=== PATIENT | female | born 1970 | race Caucasian/White ===

== ENCOUNTER → 2016-12-03 | Outpatient (CLI) | payer OTHER ==
[~2016-12-03] MED LIST: ALLEGRA ALLERG180 MG; ESKALITH C450 MG/TAB; IRON; LAMICTAL 100MG100 MG PO; MOTRIN 800800 MG/TAB PO; PAMELOR 25MG25 MG; PRINIVIL5 MG PO; PROZAC 20MG20 MG PO; ULTRAM 50MG TAB50 MG PO
== END ==
LOC: BHSO 09:00
DX: F31.81 Bipolar II disorder (principal)

== ENCOUNTER → 2017-02-04 | Outpatient (CLI) | payer OTHER | LOC: BHSO 09:28 | DX: F31.74 Bipolar disorder, in full remission, most recent episode manic (principal) ==

== ENCOUNTER → 2017-03-11 | Outpatient (CLI) | payer OTHER | LOC: MC.RAD 13:16 | DX: Z12.31 Encounter for screening mammogram for malignant neoplasm of breast (principal) ==

== ENCOUNTER → 2017-04-03 | Outpatient (CLI) | payer OTHER | LOC: BHSO 10:17 | DX: F31.73 Bipolar disorder, in partial remission, most recent episode manic (principal) ==

== ENCOUNTER → 2017-05-13 | Outpatient (CLI) | payer OTHER | LOC: BHSO 09:18 | DX: F31.73 Bipolar disorder, in partial remission, most recent episode manic (principal) ==

== ENCOUNTER → 2017-08-04 | Outpatient (CLI) | payer OTHER | LOC: BHSO 09:03 | DX: F31.73 Bipolar disorder, in partial remission, most recent episode manic (principal) ==

== ENCOUNTER → 2017-12-02 | Outpatient (CLI) | payer OTHER | LOC: BHSO 09:36 | DX: F41.1 Generalized anxiety disorder (principal) | CPT/HCPCS: G0463 ==

== ENCOUNTER → 2018-02-18 | Outpatient (CLI) | payer OTHER | LOC: BHSO 09:36 | DX: F31.31 Bipolar disorder, current episode depressed, mild (principal) | CPT/HCPCS: G0463 ==

== ENCOUNTER → 2018-05-18 | Outpatient (CLI) | payer OTHER | LOC: BHSO 09:34 | DX: F31.31 Bipolar disorder, current episode depressed, mild (principal) ==

== ENCOUNTER → 2018-07-13 | Outpatient (CLI) | payer OTHER | LOC: BHSO 09:26 | DX: F31.76 Bipolar disorder, in full remission, most recent episode depressed (principal) | CPT/HCPCS: G0463 ==

== ENCOUNTER → 2018-09-22 | Outpatient (CLI) | payer OTHER | LOC: BHSO 13:26 | DX: F31.76 Bipolar disorder, in full remission, most recent episode depressed (principal) | CPT/HCPCS: G0463 ==

== ENCOUNTER → 2018-11-09 | Outpatient (CLI) | payer OTHER | LOC: BHSO 09:31 | DX: F31.75 Bipolar disorder, in partial remission, most recent episode depressed (principal) | CPT/HCPCS: G0463 ==

== ENCOUNTER → 2019-02-15 | Outpatient (CLI) | payer OTHER | LOC: BHSO 09:39 | DX: F31.76 Bipolar disorder, in full remission, most recent episode depressed (principal) | CPT/HCPCS: G0463 ==

== ENCOUNTER → 2019-08-03 | Outpatient (CLI) | payer OTHER | LOC: MC.RAD 06-30 11:30 | DX: Z12.31 Encounter for screening mammogram for malignant neoplasm of breast (principal) ==

== ENCOUNTER → 2019-08-23 | Outpatient (CLI) | payer OTHER | LOC: BHSO 09:32 | DX: F41.1 Generalized anxiety disorder (principal) | CPT/HCPCS: G0463 ==

== ENCOUNTER → 2019-10-25 | Outpatient (CLI) | payer OTHER | LOC: BHSO 09:24 | DX: F31.77 Bipolar disorder, in partial remission, most recent episode mixed (principal) | CPT/HCPCS: G0463 ==

== ENCOUNTER → 2019-12-27 | Outpatient (CLI) | payer OTHER | LOC: BHSO 09:35 | DX: F31.78 Bipolar disorder, in full remission, most recent episode mixed (principal) | CPT/HCPCS: G0463 ==

== ENCOUNTER → 2020-03-27 | Outpatient (CLI) | payer OTHER | LOC: BHSO 08:50 | DX: F31.76 Bipolar disorder, in full remission, most recent episode depressed (principal) | CPT/HCPCS: G0463 ==

== ENCOUNTER → 2020-05-29 | Outpatient (CLI) | payer OTHER | LOC: BHSO 09:54 | DX: F31.75 Bipolar disorder, in partial remission, most recent episode depressed (principal) | CPT/HCPCS: G0463 ==

== ENCOUNTER → 2020-08-07 | Outpatient (CLI) | payer OTHER | LOC: BHSO 08:35 | DX: F31.75 Bipolar disorder, in partial remission, most recent episode depressed (principal) | CPT/HCPCS: G0463 ==

== ENCOUNTER → 2020-09-05 | Outpatient (CLI) | payer OTHER | LOC: BHSO 09:31 | DX: F31.75 Bipolar disorder, in partial remission, most recent episode depressed (principal) | CPT/HCPCS: G0463 ==

== ENCOUNTER → 2021-04-24 | Outpatient (CLI) | payer OTHER | LOC: COL.RAD 12:36 | DX: K76.0 Fatty (change of) liver, not elsewhere classified (principal); N18.30 Chronic kidney disease, stage 3 unspecified ==

== ENCOUNTER 2021-12-11 06:55 | Day surgery (SDC) | payer OTHER ==
[~2021-12-11] VITALS: Ht 165.1 cm; Wt 124.6 kg
--- NOTE | 2021-12-11 07:05 | NUR ---
51 Year old female admitted to [facility] #1. Height and weight obatined. Medications and HX reveiwed. Physical assessment completed. Procedure verified and consent signed. First and last name + verified with the patient. Vitals obtained. IV started in R hand on first attempt with 20G. IVF scanned and set to drip. Patient changed witout difficulty. Warm blanket provided. Non-slip socks are on. Call slater is within reach and the patients is present.
[2021-12-11] MEDS ORDERED: MYRBETR50MG PO (07:20)
[2021-12-11] MEDS ORDERED: WOMEN'S DAILY1 TAB PO (07:20)
[2021-12-11] MEDS ORDERED: WELLBUTRIN SR150 M1 PO (07:21)
[2021-12-11] MEDS ORDERED: NUEDEXTA 20 MG-1 CAP PO (07:21)
[2021-12-11] MEDS ORDERED: PRINIVIL5 MG PO (07:22)
[2021-12-11] MEDS ORDERED: PAMELOR75 MG PO (07:22)
[2021-12-11] MEDS ORDERED: LATUDA60 MG PO (07:23)
[2021-12-11] MEDS ORDERED: ESKALITH C450 MG/TAB PO (07:23)
[2021-12-11] MEDS ORDERED: PRILOSEC 20MG20 MG PO (07:24)
[2021-12-11 07:46] VITALS: BP 142/82; PULSE 93; TEMP 98
[2021-12-11 08:30] VITALS: BP 119/69; PULSE 85
--- NOTE | 2021-12-11 08:30 | NUR ---
Patient returns to bay 1 per cart after having EGD. Transfers from cart to recliner with one person assist. IV fluids infusing. Temp 98.1. Denies difficulty swallowing and any nausea or abdominal pain. Given water and toast for snack. Spouse in room and call light in reach.
[2021-12-11 08:45] VITALS: BP 120/75; PULSE 84
--- NOTE | 2021-12-11 08:45 | NUR ---
Room air sats 94%. Resting and sipping on water and eating toast.
--- NOTE | 2021-12-11 08:55 | NUR ---
IV discontinued and dresses self. Given dismissal instructions and voices understanding of these.
--- NOTE | 2021-12-11 09:03 | NUR ---
Patient dismissed to home and taken to the front door per wheelchair and assisted into private vehicle with instructions in hand.
== END 2021-12-11 09:03 | disposition home or self-care (01) ==
LOC: SDCO 06:55
DX: K21.9 Gastro-esophageal reflux disease without esophagitis (principal); K29.30 Chronic superficial gastritis without bleeding; G47.33 Obstructive sleep apnea (adult) (pediatric); E88.81 Metabolic syndrome and other insulin resistance; I12.9 Hypertensive chronic kidney disease with stage 1 through stage 4 chronic kidney disease, or unspecified chronic kidney disease; N18.30 Chronic kidney disease, stage 3 unspecified; E78.5 Hyperlipidemia, unspecified; E66.01 Morbid (severe) obesity due to excess calories; F41.9 Anxiety disorder, unspecified; F31.9 Bipolar disorder, unspecified; F50.81 Binge eating disorder; Z99.89 Dependence on other enabling machines and devices; Z79.899 Other long term (current) drug therapy; Z90.710 Acquired absence of both cervix and uterus; Z68.41 Body mass index [BMI] 40.0-44.9, adult
CPT/HCPCS: J2704; J7030

== ENCOUNTER 2021-12-25 09:30 | Inpatient (IN) | payer OTHER ==
[~2021-12-25] VITALS: Ht 165.1 cm; Wt 120.0 kg
[~2021-12-25 09:30] MED LIST changes: +ESKALITH C450 MG/TAB PO; +LATUDA60 MG PO; +MYRBETR50MG PO; +NUEDEXTA 20 MG-1 CAP PO; +PAMELOR75 MG PO; +PRILOSEC 20MG20 MG PO; +WELLBUTRIN SR150 M1 PO; +WOMEN'S DAILY1 TAB PO
[2022-01-09] VITALS (11 sets, daily range): BP systolic 104–141; BP diastolic 66–83; PULSE 90–105; TEMP 98–98.7
[2022-01-09] MEDS ORDERED: MULTIVITAMIN FO1 CAP PO (08:08)
[2022-01-09] MEDS ORDERED: MYRBETR50MG PO (08:08)
[2022-01-09] MEDS ORDERED: WELLBUTRIN 75MG75 MG PO (08:09)
[2022-01-09] MEDS ORDERED: NUEDEXTA 20 MG-1 CAP PO (08:09)
[2022-01-09] MEDS ORDERED: CALCIUM 600600 MG PO (08:10)
[2022-01-09] MEDS ORDERED: MASON NATURAL2000 IU PO (08:11)
[2022-01-09] MEDS ORDERED: B-121000 MCG PO (08:12)
[2022-01-09] MEDS ORDERED: PAMELOR75 MG PO (08:12)
[2022-01-09] MEDS ORDERED: ALLEGRA 180MG180 MG PO (08:14)
[2022-01-09] MEDS ORDERED: PRINIVIL5 MG PO (08:14)
[2022-01-09] MEDS ORDERED: LITHIUM 30300 MG/CAP PO (08:15)
[2022-01-09] MEDS ORDERED: PROBIOTIC BLEN1 EACH PO (08:15)
[2022-01-09] MEDS ORDERED: FLONASEALLERGY NS (08:16)
[2022-01-09] MEDS ORDERED: LATUDA60 MG PO ×2 (08:16→14:55)
[2022-01-09] MEDS ORDERED: ATIVAN 1MG T1 MG/TAB PO (08:17)
[2022-01-09] MEDS ORDERED: MELATONIN5 M1 PO (08:17)
[2022-01-09] MEDS ORDERED: WELLBUTRIN XL150 MG PO (14:54)
--- NOTE | 2022-01-09 15:30 | NUR ---
Pt arrived to the floor from [facility] around 1400. Pt is alert and oriented with minimal to no pain complaints. Spouse is not in the hospital at this time, pt aware. Pt rating her pain 1-2/10. Oriented pt to her room and educated on plan of care when she arrived to the floor. She currently has the ARCHITECTURE CONSULTANT for pain management. Pt educated on its use. SCDs on bilaterally. Fluids infusing to her right hand IV. Santos catheter to dependent drainage with clear yellow output. Lap sites are CDI with bandaids and MARCUS drain site with dressing that is CDI. Absent bowel sounds, lung sound clear and heart rate regular. Pt aware that she is to not have anything to eat or drink at this time. Call light within reach, will continue to monitor
--- NOTE | 2022-01-09 15:47 | NUR ---
Pt having complaints of a few of her fingers tingling. She did have them rested on her abd. Asked her to put them at her side for increased blood flow. No new medications have been given recently. Dr Taylor was on the floor, notified him of this, new orders received.
[2022-01-09 16:26] LABS: CALCIUM 9.6 mg/dL (8.4-10.2); CREATININE, serum 1.7 mg/dL (0.57-1.11); POTASSIUM 4.4 mmol/L (3.5-4.5)
--- NOTE | 2022-01-09 18:12 | NUR ---
Pt recently assisted to the chair. Her dressing for the MARCUS drain was bloody, changed prior to the chair. Pt stated that her pain has been a zero, but pt has been using the HOTEL FRONT OFFICE MANAGER. Assessed pt tolerable pain level and she stated 5/10. Informed her to maybe wait until at least 3-4 before using the HOTEL FRONT OFFICE MANAGER. Pt did well getting up to the chair, it was slow, but managable. Pt did have an increase in pain, but once in chair used the HOTEL FRONT OFFICE MANAGER. Call light within reach, will continue to monitor
[2022-01-10] VITALS (9 sets, daily range): BP systolic 125–149; BP diastolic 56–86; PULSE 91–110; TEMP 98.3–99.5
--- NOTE | 2022-01-10 01:57 | NUR ---
Report received from MARTHA Vogt. Patient up in her chair watching television. Assessment completed and vital signs WNL. Medication administration completed without difficulty. Patient is A&Ox3 and tolerating pain well, rates her pain a 2/10. MARCUS drain in place, 75 ml of sanguineos removed. Patient has no complaints at this time. Call light within reach.
[2022-01-10 06:25] LABS: BASO % 0.1 % (0.0-2.0); EOS % 0.1 % (0.0-4.0); GRAN # 12.3 K/mm3 (1.4-6.5); HEMATOCRIT 37.2 % (37.0-47.0); HEMOGLOBIN 12.4 g/dl (12.5-16.0); LYMPH # 1.1 K/mm3 (1.2-3.4); LYMPH % 7.4 % (20.0-51.0); MEAN CELL VOLUME 86 fl (80.0-100.0); MEAN CORPUSCULAR HEMOGLOBIN 29 pg (27-31); MEAN CORPUSCULAR HGB CONC 33 g/dl (33.0-37.0); MEAN PLATELET VOLUME 12.6 fl (7.4-10.4); MONO # 0.9 K/mm3 (0.1-0.6); MONO % 6.1 % (1.7-9.3); PLATELET COUNT 150 K/mm3 (130-400); RED BLOOD COUNT 4.35 M/mm3 (4.10-5.30); REDCELL DISTRIBUTION WIDTH-CV 14.9 % (11.5-14.5)
[2022-01-10 06:47] LABS: ALANINE AMINOTRANSFERASE 209 U/L (0-55); ALBUMIN 3.7 gm/dL (3.5-5.0); ALKALINE PHOSPHATASE 77 U/L (40-150); ANION GAP 10 mmol/L (7-16); AST,SGOT 194 U/L (5-34); BLOOD UREA NITROGEN 16 mg/dL (10-20); CALCIUM 9.4 mg/dL (8.4-10.2); CARBON DIOXIDE 22 mmol/L (22-29); CHLORIDE 109 mmol/L (98-107); CREATININE, serum 1.32 mg/dL (0.57-1.11); GLUCOSE 131 mg/dL (70-99); POTASSIUM 4.2 mmol/L (3.5-4.5); SODIUM 141 mmol/L (136-145); TOTAL PROTEIN 6.8 gm/dL (6.2-8.1)
[2022-01-10 06:57] LABS: BILIRUBIN,TOTAL < 0.5 mg/dL (0.2-1.2)
--- NOTE | 2022-01-10 08:58 | NUR ---
Pt currently sitting up in the chair. She states that her pain was tolerable through the night, increased with movement. Appears that her tang catheter was leaking as her bed was wet. There is urine output in the tang catheter as well. MARCUS drain emptied and put to bulb suction. Pt educated on plan for the day. She is aware that she is to not have anything to eat or drink at this time and will be going to radiology for swallow. Call light within reach
--- NOTE | 2022-01-10 09:14 | NUR ---
pt off the floor for barrium swallow
--- NOTE | 2022-01-10 10:29 | NUR ---
weld lay out worker met with patient to discuss discharge plan. Patient report that she lives at home in [place] with her Giovanni ([phone]). Patient reports that she is independent with her ADL's and does not utilize any DME at home to assist with mobility. She has no oxygen needs however does utilize a CPAP machine a night that is managed through . PCP is Dr. Larose and she utilizes [facility] for medications with no cost difficulty. Patient does have a DPOA-HC established and has the original with her. Copy made and placed in chart. DPOA-HC listing her Giovanni as her primary agent and her daughter Ermelinda as an alternate agent. Patient is planning on returning home with no concerns. Discharge plan: Home
--- NOTE | 2022-01-10 10:40 | NUR ---
Pt back from barium swallow. Discussed with Dr Taylor who ok'd her to have the 30cc of clear liquid every hour. Educated pt on this. Gave her a 30cc medicine cup for her to measure her intake. Pt reports that her pain continues to be tolerable, not needing to use the PENOLOGY PROFESSOR very often. Pt continues to sit up in the chair. Oil Field Rig Builder has come by to see patient, diet handouts given to her. Call light within reach
--- NOTE | 2022-01-10 12:57 | NUR ---
Pt tolerating the clear liquids. Pt consistently asks when she will get real food. Informed her that she will be clear liquids today and that she needs to continue to follow the diet she was educated on strictly. pt only nods in agreement. Fluids decreased to 75 per order
--- NOTE | 2022-01-10 14:40 | NUR ---
Pt up ambulating in the halls. She did well, mild pain increase, CARAMEL COLORING OPERATOR used. Encouraged pt to get up every couple of hours. Pt continues to tolerate the clear liquids
--- NOTE | 2022-01-10 15:30 | NUR ---
Report received from MARTHA Vogt. Assuming care for rest of shift.
--- NOTE | 2022-01-10 17:56 | NUR ---
PT ALERT AND ORIENTED. PT AT BEDSIDE. PT REPORTING PAIN IN LEFT UPPER QUADRANT. FOCUSED ASSESSMENT COMPLETED AND DOCUMENTED. PT INCISIONS COVERED WITH BANDAIDS, CLEAN, DRY, INTACT. PT HAS MARCUS DRAIN TO BULB SUCTION, DRAINAGE IS RED, BLOODY. PT CALL LIGHT WITHIN REACH.
--- NOTE | 2022-01-10 21:27 | NUR ---
Report received from day shift nurse. Patient is laying in bed quietly during report. Reports that her pain is 2/10 and is manageable. Santos catheter and WIRELESS STORE MANAGER were discontinued during dayshift 01/10/22. Patient is voiding. MACRUS drain still in place in lower left quadrant and contains scant amount of sanguineous drainage. Full body assessment completed, vital signs are WNL. Incision sites are CD&I. Patient tolerating oral fluids. No other complaints at this time. Call light within reach.
--- NOTE | 2022-01-11 03:00 | NUR ---
Patient complaining of abdominal pain while laying in bed , rates her pain a 5/10. PRN tramadol was given. No other complaints at this time. Call light within reach
[2022-01-11 03:29] VITALS: BP 128/73; PULSE 101; TEMP 99.3
[2022-01-11 06:32] LABS: BASO % 0.3 % (0.0-2.0); EOS # 0.1 K/mm3 (0.0-0.7); EOS % 0.5 % (0.0-4.0); GRAN # 9.8 K/mm3 (1.4-6.5); GRAN % 82.7 % (42.2-75.2); HEMOGLOBIN 11.8 g/dl (12.5-16.0); LYMPH # 1.1 K/mm3 (1.2-3.4); LYMPH % 8.9 % (20.0-51.0); MEAN CELL VOLUME 88 fl (80.0-100.0); MEAN CORPUSCULAR HEMOGLOBIN 28 pg (27-31); MEAN CORPUSCULAR HGB CONC 32 g/dl (33.0-37.0); MEAN PLATELET VOLUME 12.6 fl (7.4-10.4); MONO # 0.8 K/mm3 (0.1-0.6); MONO % 7.1 % (1.7-9.3); PLATELET COUNT 94 K/mm3 (130-400); RED BLOOD COUNT 4.19 M/mm3 (4.10-5.30); REDCELL DISTRIBUTION WIDTH-CV 15.2 % (11.5-14.5)
[2022-01-11 06:50] LABS: CALCIUM 9.5 mg/dL (8.4-10.2); CREATININE, serum 1.2 mg/dL (0.57-1.11); POTASSIUM 4.3 mmol/L (3.5-4.5)
--- NOTE | 2022-01-11 07:00 | NUR ---
Report received from MARTHA Moore. Pt in bed resting with CPAP in place. PRN pain meds will be given, will continue to monitor.
[2022-01-11 07:29] VITALS: BP 128/83; PULSE 98; TEMP 99.2
[2022-01-11 07:40] LABS: HEMATOCRIT 36.7 % (37.0-47.0)
--- NOTE | 2022-01-11 08:35 | NUR ---
Assessment charted. Pt c/o pain at 5/10 to ABD, increases with movement. Discussed fluid restriction PO at 30mls q 15 mins, pt agreeable to this plan, ice water provided. Discussed full liquid diet. PRN pain meds given per reqeust. Pt has 4 lap sites CDI and 1 MARCUS site with bloody drainage that is CDI on the dressing. Bowel sounds are hypoactive and appears distended. IVF to RH. Will continue to monitor.
[2022-01-11] MEDS ORDERED: ULTRAM 50MG TAB50 MG PO (08:45)
[2022-01-11] MEDS ORDERED: PRILOTC PO (08:45)
[2022-01-11] MEDS ORDERED: ZOFRAN 4MG T4 MG/TAB PO (08:45)
--- NOTE | 2022-01-11 09:23 | NUR ---
Initial visit; Patient thanked It Operations Analyst for looking in on her. Callie is experiencing pain and says she will keep nurses posted on how she feels. It Operations Analyst wished her well and offered God's blessings.
[2022-01-11 11:15] VITALS: BP 132/70; PULSE 104; TEMP 99.3
[2022-01-11 15:46] VITALS: BP 117/71; PULSE 105; TEMP 97.5
--- NOTE | 2022-01-11 18:23 | NUR ---
Pt has done well over shift, up walking every few hours, PRN ultram given per request throughout shift, denies needs, taking PO slowly and taking breaks in between. Will give report to nightshift nurse who will resume care.
[2022-01-11 20:38] VITALS: BP 131/74; PULSE 102; TEMP 98.1
[2022-01-12 00:34] VITALS: BP 124/73; PULSE 101; TEMP 99.1
[2022-01-12 04:30] VITALS: BP 122/79; PULSE 78; TEMP 97.8
--- NOTE | 2022-01-12 05:44 | NUR ---
pt requesting tramadol q4 hrs for pain, up to restroom to void with SBA, IVF infusing @75cc/hr, nausea reported x1, zofran given and resolved. taking sips of H2O with meds. 160cc bloody drainage from MARCUS drain, specimen sent to lab this am for amalase check. drsgs to armando CDI.
[2022-01-12 07:16] VITALS: BP 118/75; PULSE 96; TEMP 98
--- NOTE | 2022-01-12 11:30 | NUR ---
PT DEPARTED SURGICAL FLOOR @ 1115 VIA WC, ACCOMPANIED BY PCT MYRON. PT'S SPOUSE PICKED HER UP TO GO HOME. PT WAS PLEASANT, VOCALIZED UNDERSTANDING OF DISCHARGE INSTRUCTIONS. PT DENIES NAUSEA OR PAIN. PERIPHERAL IV IS DCED. PT'S MARCUS DRAIN WAS DCED BY DR. KENT EARLIER IN THE MORNING. DRESSINGS CDI TO LAP SITES ET DRAIN INCISION. PT TAKES PERSONAL BELONGINGS WITH HER, HAS GLASSES ON.
== END 2022-01-12 11:15 | disposition home or self-care (01) | DRG 621 ==
LOC: INPTSU 01-09 07:30 → SURG 01-09 10:00
PROVIDERS: ADMIT Surgery
PROC: 8E0W4CZ Robotic Assisted Procedure of Trunk Region, Percutaneous Endoscopic Approach (ICD-10-PCS; 2022-01-09)
PROC: 0D164ZA Bypass Stomach to Jejunum, Percutaneous Endoscopic Approach (ICD-10-PCS; principal; 2022-01-09 10:00)
DX: E66.01 Morbid (severe) obesity due to excess calories (principal); Z68.41 Body mass index [BMI] 40.0-44.9, adult; K21.9 Gastro-esophageal reflux disease without esophagitis; F31.9 Bipolar disorder, unspecified; I12.9 Hypertensive chronic kidney disease with stage 1 through stage 4 chronic kidney disease, or unspecified chronic kidney disease; N18.9 Chronic kidney disease, unspecified; G47.33 Obstructive sleep apnea (adult) (pediatric); E88.81 Metabolic syndrome and other insulin resistance; Z23 Encounter for immunization
CPT/HCPCS: A4314; C9113; J0690; J1100; J1170; J1650; J1956; J2405; J2550; J2704; J3010; J3480; J7120

== ENCOUNTER → 2022-09-30 | Outpatient (CLI) | payer OTHER ==
[~2022-09-30] MED LIST changes: +ALLEGRA 180MG180 MG PO; +ATIVAN 1MG T1 MG/TAB PO; +B-121000 MCG PO; +CALCIUM 600600 MG PO; +FLONASEALLERGY NS; +LITHIUM 30300 MG/CAP PO; +MASON NATURAL2000 IU PO; +MELATONIN5 M1 PO; +MULTIVITAMIN FO1 CAP PO; +PRILOTC PO; +PROBIOTIC BLEN1 EACH PO; +WELLBUTRIN 75MG75 MG PO; +WELLBUTRIN XL150 MG PO; +ZOFRAN 4MG T4 MG/TAB PO
== END ==
LOC: COL.RAD 09-26 06:30
DX: E05.90 Thyrotoxicosis, unspecified without thyrotoxic crisis or storm (principal)
CPT/HCPCS: A9516

== ENCOUNTER 2024-03-17 08:02 | Inpatient (IN) | payer OTHER ==
[~2024-03-17] VITALS: Ht 165.1 cm; Wt 89.7 kg
[~2024-03-17 08:02] MED LIST changes: +ASPIRIN E.C. 8181 MG PO; +BACTRIM DS 8001 TAB PO; +BRILINTA90 MG PO; +CAPLYTA42 MG PO; +HAIRSKINNAILS PO; +IMODIUM 2MG CAPS2 MG PO; +K-DUR20 MEQ PO; +LIPITOR 80MG80 MG PO; -LITHIUM 30300 MG/CAP PO; +LITHIUM CA150 MG/CAP PO; +METAMUCIL0.52 G1 PO; +NITROSTAT0.4 MG/TAB SL; +PAMELOR 25MG25 MG PO; +PROAIR HFA0.09 MG/AC IH; +ZEBETA 5MG5 MG PO
[2024-03-17] MEDS ORDERED: Ondansetron 4 MG/2 ML VIAL IV PRN ×3 (08:45→14:45)
[2024-03-17] MEDS ORDERED: NS 1,000 ML IV ONE (08:45)
[2024-03-17] MEDS ORDERED: Morphine 4 MG/ML VIAL IV PRN (08:45)
[2024-03-17 09:08] LABS: BASO % 0.5 % (0.0-2.0); EOS # 0.1 K/mm3 (0.0-0.7); GRAN # 4.9 K/mm3 (1.4-6.5); LYMPH # 1.1 K/mm3 (1.2-3.4); MEAN CELL VOLUME 94 fl (80.0-100.0); MEAN CORPUSCULAR HGB CONC 33 g/dl (33.0-37.0); MONO # 0.5 K/mm3 (0.1-0.6); PLATELET COUNT 141 K/mm3 (130-400); RED BLOOD COUNT 2.95 M/mm3 (4.10-5.30); REDCELL DISTRIBUTION WIDTH-CV 13.5 % (11.5-14.5)
[2024-03-17 09:09] LABS: HEMATOCRIT 27.7 % (37.0-47.0); HEMOGLOBIN 9.1 g/dl (12.5-16.0); MEAN CORPUSCULAR HEMOGLOBIN 31 pg (27-31)
[2024-03-17 09:40] LABS: ALBUMIN 3.6 g/dL (3.5-5.0); BILIRUBIN,TOTAL 0.3 mg/dL (0.2-1.2); CALCIUM 9.3 mg/dL (8.4-10.2); CREATININE, serum 1.22 mg/dL (0.57-1.11); POTASSIUM 3.9 mEq/L (3.5-4.5); TOTAL PROTEIN 6.4 g/dl (6.2-8.1)
[2024-03-17] MEDS ORDERED: Iohexol 300 - 100 ML VIAL IV ONE (10:26)
[2024-03-17] MEDS ORDERED: NS 100 ML IV SCH (10:27)
[2024-03-17] MEDS ORDERED: CONTRAVE1 TER PO (12:33)
[2024-03-17] MEDS ORDERED: CRANBERRY250 MG PO (12:34)
[2024-03-17] MEDS ORDERED: VITAMINC1000TA PO (12:34)
[2024-03-17] MEDS ORDERED: DEPAKENE250 MG PO ×2 (12:35)
[2024-03-17] MEDS ORDERED: CITRACAL + D CA1 TAB PO (12:36)
[2024-03-17] MEDS ORDERED: Morphine 4 MG/ML VIAL IV ONE (13:15)
[2024-03-17] MEDS ORDERED: Pantoprazole 40 MG in NS 10 ML IV ONE (13:45)
[2024-03-17] MEDS ORDERED: LR 1,000 ML IV SCH (14:30)
[2024-03-17 16:12] VITALS: BP 97/61; PULSE 67; TEMP 98
[2024-03-17] MEDS ORDERED: *Potassium Replacement Protocol MC SCH (16:15)
--- NOTE | 2024-03-17 16:32 | NUR ---
Patient to room 358 from the ED. A&Ox4. VSS. IV CDI, fluids infusing. Denies pain and discomfort. Call light within reach. Nurse oriented the patient to location, call light and room. No further needs expressed
--- NOTE | 2024-03-17 18:50 | NUR ---
PATIENT SITTING UP IN BED WATCHIN SHOW ON PERSONAL IPAD WITH NO FAMILY PRESENT WITH NO ACUTE DISTRESS NOTED. PATIENT ON ROOM AIR. TELEMETRY INTACT. LR INUFSING INTO LEFT AC WITH NO COMPLICATIONS NOTED. PATIENT DENIES ANY NEEDS AT THIS TIME. PATIENT CARE ASSSUMED FROM KENTRELL. BED IN LOW POSITION WITH WHEELS LOCKED WITH RAILS UP X2 AND CALL LIGHT WITHIN REACH.
[2024-03-17 19:30] LABS: HEMATOCRIT 24.1 % (37.0-47.0); HEMOGLOBIN 7.9 g/dl (12.5-16.0)
[2024-03-17 19:32] LABS: INR 1.1 (0.8-3.0); PROTHROMBIN TIME 11.9 SECONDS (9.7-12.8)
[2024-03-17 19:56] VITALS: BP 109/72; PULSE 77; TEMP 98.5
--- NOTE | 2024-03-17 19:59 | NUR ---
HOSPITALIST MIRIAM LACKEY APRN CALLED FOR PATIENT C/O HEADACHE. ORDER RECIEVED FOR TYLENOL 650 MG PO EVERY 4 HOURS PRN FOR PAIN.
[2024-03-17 20:13] VITALS: BP_SYST 109
--- NOTE | 2024-03-17 20:13 | NUR ---
PATIENT RESTING IN BED WITH PERSONAL IPAD ON BEDSIDE TABLE WITH NO FAMILY PRESENT WITH NO ACUTE DISTRESS NOTED. PATIENT ON ROOM AIR. LR INFUSING INTO LEFT AC WITH NO COMPLICATIONS NOTED. TELEMETRY INTACT. ASSESSMENT AND MEDICATION ADMINISTRATION COMPLETED AT THIS TIME. PATIENT TOLERATED WELL. PATIENT C/O HEADACHE AND STATES THAT HER PAIN LEVEL WAS A 7 ON SCALE OF 0 TO 10. PATIENT VERBALIZED UNDERSTANDING THAT HOSPITALIST WOULD BE CALLED FOR PAIN MEDICATION. PATIENT REQUESTED WATER AND WAS GIVEN. PATIENT DENIES ANY OTHER NEEDS. BED IN LOW POSITION WITH WHEELS LOCKED WITH RAILS UP X2 AND CALL LIGHT WITHIN REACH.
[2024-03-17] MEDS ORDERED: Acetaminophen 325 MG TAB PO PRN (20:15)
[2024-03-17] MEDS ORDERED: VALPROIC ACID 250 MG PO SCH (21:00)
[2024-03-17] MEDS ORDERED: NUEDEXTA PO SCH (21:00)
[2024-03-17] MEDS ORDERED: Divalproex 250 MG Delayed Release TAB PO SCH (21:00)
[2024-03-17] MEDS ORDERED: Pantoprazole 40 MG in NS 10 ML IV SCH (21:00)
[2024-03-17] MEDS ORDERED: DIVALPROEX 250 MG PO SCH (21:00)
[2024-03-18] VITALS (16 sets, daily range): BP systolic 91–116; BP diastolic 53–79; PULSE 68–79; TEMP 97.6–98.5
--- NOTE | 2024-03-18 00:15 | NUR ---
HOSPITALIST MIRIAM LACKEY APRN CALLED FOR NOLAN REQUESTED FOR SOMETHING FOR SLEEP. TELEPHONE ORDER RECIEVED FOR MELATONIN 6 MG PO EVERY EVENING PRN FOR INSOMNIA.
[2024-03-18] MEDS ORDERED: Melatonin 3 MG TAB PO PRN (00:30)
--- NOTE | 2024-03-18 00:51 | NUR ---
PATIENT GIVEN MELATONIN PER MD ORDER WITH SIP OF WATER FOR INSOMNIA. PATIENT TOLERATED WELL. PATIENT DENIES ANY OTHER NEEDS AT THIS TIME. BED IN LOW POSITION WITH WHEELS LOCKED WITH RAILS UP X2 AND CALL LIGHT WITHIN REACH.
[2024-03-18] MEDS ORDERED: LR 1,000 ML IV SCH (06:00)
[2024-03-18 07:09] LABS: BASO % 0.5 % (0.0-2.0); EOS # 0.1 K/mm3 (0.0-0.7); EOS % 2.7 % (0.0-4.0); GRAN # 2.5 K/mm3 (1.4-6.5); GRAN % 61.9 % (42.2-75.2); LYMPH # 1.1 K/mm3 (1.2-3.4); MEAN CELL VOLUME 96 fl (80.0-100.0); MEAN CORPUSCULAR HGB CONC 32 g/dl (33.0-37.0); MEAN PLATELET VOLUME 12.7 fl (7.4-10.4); MONO # 0.3 K/mm3 (0.1-0.6); MONO % 7.9 % (1.7-9.3); PLATELET COUNT 102 K/mm3 (130-400); RED BLOOD COUNT 2.56 M/mm3 (4.10-5.30); REDCELL DISTRIBUTION WIDTH-CV 13.6 % (11.5-14.5)
[2024-03-18 07:17] LABS: BILIRUBIN,TOTAL 0.3 mg/dL (0.2-1.2); CALCIUM 8.9 mg/dL (8.4-10.2); CREATININE, serum 1.12 mg/dL (0.57-1.11); HEMATOCRIT 24.6 % (37.0-47.0); HEMOGLOBIN 7.8 g/dl (12.5-16.0); MAGNESIUM 1.8 mg/dL (1.6-2.6); MEAN CORPUSCULAR HEMOGLOBIN 30 pg (27-31); POTASSIUM 4.2 mEq/L (3.5-4.5); TOTAL PROTEIN 5.3 g/dl (6.2-8.1)
[2024-03-18] MEDS ORDERED: Patient's Own Medication Item PO SCH ×2 (09:00)
[2024-03-18] MEDS ORDERED: Fexofenadine 180 MG **** subs to Loratadine 10 MG PO SCH (09:00)
[2024-03-18] MEDS ORDERED: Cholecalciferol (Vit D3) 1000 Units TAB PO SCH (09:00)
[2024-03-18] MEDS ORDERED: Mirabegron ER 50 MG TAB PO SCH (09:00)
[2024-03-18] MEDS ORDERED: CAPLYTA 42 MG PO SCH (09:00)
[2024-03-18] MEDS ORDERED: VALPROIC ACID 250 MG PO SCH (09:00)
[2024-03-18] MEDS ORDERED: Divalproex 250 MG Delayed Release TAB PO SCH (09:00)
[2024-03-18] MEDS ORDERED: Loratadine 10 MG TAB PO SCH (09:00)
--- NOTE | 2024-03-18 11:51 | NUR ---
Patient to EGD via cart with Endo staff. LR infusing on gravity tubing at 75ml/hr.
[2024-03-18] MEDS ORDERED: Lidocaine PF 2% (20 MG/ML) 5 ML VIAL ONE (11:57)
[2024-03-18] MEDS ORDERED: fentaNYL 50 MCG/ML 2 ML VIAL ONE (12:00)
--- NOTE | 2024-03-18 12:30 | NUR ---
Pt returned from EGD via cart. Still c/o headache, rating 1-2/10. Ice pack provided.
--- NOTE | 2024-03-18 12:45 | NUR ---
D: Initial visit: Separations Scientist stopped by room on rounds. A: Pt was resting and content. Pt has no needs, but appreciated the visit. P: Separations Scientist informed pt that if she needed anything from the machine setup operator area to let her nurse know. Separations Scientist will follow up as needed.
--- NOTE | 2024-03-18 16:12 | NUR ---
Strategic Consultant met with patient to discuss discharge planning. Patient lives in [place] with her , Giovanni (ph#[phone]) and sees Dr. Larose for primary care. Patient gets her medications from [facility] on [address] and does not use any DME. Patient is independent with ADLS and plans to return home at time of discharge. Patient advised her DPOA-HC would be her Giovanni then daughter, Ermelinda. Discharge Plan; Home
--- NOTE | 2024-03-18 19:02 | NUR ---
PATIENT SITTING UP IN BED FINISHING DINNER WITH TV ON WITH AT BEDSIDE WITH NO ACUTE DISTRESS NOTED. PATIENT ON ROOM AIR. NS INFUSING INTO LEFT AC WITH NO COMPLICATIONS NOTED. PATIENT DENIES ANY NEEDS AT THIS TIME. PATIENT CARE ASSUMED FROM TONA. BED IN LOW POSITION WITH WHEELS LOCKED WITH RAILS UP X2 AND CALL LIGHT WITHIN REACH.
--- NOTE | 2024-03-18 19:25 | NUR ---
Pt resting in bed, visiting with . Denies pain. Reports headache resolved with ice pack and food. VSS- see flowsheet. Tolerating GERD/[place] diet. IVF of LF infuse to LFA as ordered- no s/s IV related complications.
--- NOTE | 2024-03-18 20:55 | NUR ---
PATIENT RESTING IN BED WATCHING A SHOW ON HER IPAD WITH TV OFF WITH NO FAMILY PRESENT WITH NO ACUTE DISTRESS NOTED. PATIENT ON ROOM AIR. LR INFUSING INTO LEFT AC WITH NO COMPLICATIONS NOTED. ASSESSMENT AND MEDICATION ADMINISTRATION COMPLETED AT THIS TIME. PATIENT TOLERATED WELL. ALL NEEDS MET. BED IN LOW POSITION WITH WHEELS LOCKED WITH RAILS UP X2 AND CALL LIGHT WITHIN REACH.
[2024-03-19 00:05] VITALS: BP_SYST 91
[2024-03-19 03:03] VITALS: BP 102/66; PULSE 65; TEMP 98.3
[2024-03-19 04:20] VITALS: BP_SYST 102
[2024-03-19 06:10] LABS: BASO % 0.7 % (0.0-2.0); EOS # 0.1 K/mm3 (0.0-0.7); EOS % 3.1 % (0.0-4.0); GRAN # 2.5 K/mm3 (1.4-6.5); GRAN % 60.5 % (42.2-75.2); LYMPH # 1.1 K/mm3 (1.2-3.4); LYMPH % 27.3 % (20.0-51.0); MEAN CELL VOLUME 92 fl (80.0-100.0); MEAN CORPUSCULAR HGB CONC 33 g/dl (33.0-37.0); MEAN PLATELET VOLUME 12.1 fl (7.4-10.4); MONO # 0.3 K/mm3 (0.1-0.6); MONO % 7.9 % (1.7-9.3); PLATELET COUNT 126 K/mm3 (130-400); RED BLOOD COUNT 2.71 M/mm3 (4.10-5.30); REDCELL DISTRIBUTION WIDTH-CV 14.2 % (11.5-14.5)
[2024-03-19 06:21] LABS: HEMATOCRIT 24.9 % (37.0-47.0); HEMOGLOBIN 8.3 g/dl (12.5-16.0); MEAN CORPUSCULAR HEMOGLOBIN 31 pg (27-31)
[2024-03-19 06:29] LABS: ALBUMIN 3.1 g/dL (3.5-5.0); BILIRUBIN,TOTAL 0.3 mg/dL (0.2-1.2); CREATININE, serum 1.18 mg/dL (0.57-1.11); MAGNESIUM 1.8 mg/dL (1.6-2.6); TOTAL PROTEIN 5.6 g/dl (6.2-8.1)
--- NOTE | 2024-03-19 07:30 | NUR ---
Patient sitting up in bed, A&Ox4. VSS. IV CDI, Denies pain and discomfort. Call light within reach
[2024-03-19 07:42] VITALS: BP 104/68; PULSE 72; TEMP 98.1
[2024-03-19] MEDS ORDERED: FERRO-TIME325 MG PO (08:31)
--- NOTE | 2024-03-19 10:41 | NUR ---
Patient ambulated independently to awaiting vehicle with personal belongings and discharge paperwork
--- NOTE | 2024-03-19 10:44 | NUR ---
Discharge paperwork reviewed with the patient. Patient verbalized an understanding to follow doctors orders. IV removed, tip intact. Gauze and coban applied. Patient getting dressed and waiting on ride home. Call light within reach
== END 2024-03-19 10:41 | disposition home or self-care (01) | DRG 378 ==
LOC: COL.ER 08:02 → MEDICAL 13:12
PROVIDERS: Internal Medicine Gastroenterology; Personal Emergency Response Attendant; Physician Assistant; ADMIT Internal Medicine
PROC: 0DB78ZX Excision of Stomach, Pylorus, Via Natural or Artificial Opening Endoscopic, Diagnostic (ICD-10-PCS; principal; 2024-03-18 12:00)
DX: K25.4 Chronic or unspecified gastric ulcer with hemorrhage (principal); E87.0 Hyperosmolality and hypernatremia; K80.00 Calculus of gallbladder with acute cholecystitis without obstruction; K21.9 Gastro-esophageal reflux disease without esophagitis; G47.33 Obstructive sleep apnea (adult) (pediatric); E78.5 Hyperlipidemia, unspecified; I25.10 Atherosclerotic heart disease of native coronary artery without angina pectoris; F31.9 Bipolar disorder, unspecified; K76.89 Other specified diseases of liver; I12.9 Hypertensive chronic kidney disease with stage 1 through stage 4 chronic kidney disease, or unspecified chronic kidney disease; D50.0 Iron deficiency anemia secondary to blood loss (chronic); E88.810 Metabolic syndrome; F41.9 Anxiety disorder, unspecified; K83.8 Other specified diseases of biliary tract; F48.2 Pseudobulbar affect; J45.909 Unspecified asthma, uncomplicated; N18.32 Chronic kidney disease, stage 3b; D69.6 Thrombocytopenia, unspecified; Z95.5 Presence of coronary angioplasty implant and graft; Z88.6 Allergy status to analgesic agent; Z88.1 Allergy status to other antibiotic agents; Z88.8 Allergy status to other drugs, medicaments and biological substances; Z90.710 Acquired absence of both cervix and uterus; Z79.82 Long term (current) use of aspirin; Z79.899 Other long term (current) drug therapy; Z23 Encounter for immunization
CPT/HCPCS: C9113; J2270; J2405; J2704; J3010; J7030; J7120; Q9967

== ENCOUNTER 2024-05-14 07:15 | Day surgery (SDC) | payer OTHER ==
[~2024-05-14] VITALS: Ht 165.1 cm; Wt 77.9 kg
[~2024-05-14 07:15] MED LIST changes: +CITRACAL + D CA1 TAB PO; +CONTRAVE1 TER PO; +CRANBERRY250 MG PO; +DEPAKENE250 MG PO; +FERRO-TIME325 MG PO; +LR 1,000 ML IV SCH; +Meclizine 25 MG TAB PO SCH; +VITAMINC1000TA PO
[2024-05-14 08:11] LABS: HEMATOCRIT 37.5 % (37.0-47.0); HEMOGLOBIN 12.4 g/dl (12.5-16.0); MEAN CELL VOLUME 85 fl (80.0-100.0); MEAN CORPUSCULAR HEMOGLOBIN 28 pg (27-31); MEAN CORPUSCULAR HGB CONC 33 g/dl (33.0-37.0); MEAN PLATELET VOLUME 12.4 fl (7.4-10.4); PLATELET COUNT 102 K/mm3 (130-400)
[2024-05-14 08:25] VITALS: BP 117/87; PULSE 70; TEMP 98.4
[2024-05-14 08:28] LABS: ALBUMIN 3.5 g/dL (3.5-5.0); BILIRUBIN,TOTAL 0.3 mg/dL (0.2-1.2); CALCIUM 10.1 mg/dL (8.4-10.2); CREATININE, serum 1.06 mg/dL (0.57-1.11); POTASSIUM 4.4 mEq/L (3.5-4.5); TOTAL PROTEIN 6.1 g/dl (6.2-8.1)
[2024-05-14] MEDS ORDERED: PRIL40 PO (08:30)
[2024-05-14] MEDS ORDERED: Indocyanine Green 12.5 MG in Water For Injection,Sterile 2.5 ML IV ONE (08:30)
[2024-05-14] MEDS ORDERED: IRON TABLETS325 MG PO (08:31)
[2024-05-14] MEDS ORDERED: ATIVAN 0.50.5 MG/TAB PO (08:32)
[2024-05-14] MEDS ORDERED: LIPITOR 10MG10 MG PO (08:37)
[2024-05-14] MEDS ORDERED: PROBIOTIC BLEN1 EACH PO (08:37)
[2024-05-14] MEDS ORDERED: VITAMIN C500 MG PO (08:39)
[2024-05-14] MEDS ORDERED: KLOR-CON20 MEQ PO (08:41)
[2024-05-14] MEDS ORDERED: METAMUCIL PACK3.4 GM PO (08:42)
[2024-05-14] MEDS ORDERED: ALLEGRA 180MG180 MG PO (08:46)
[2024-05-14] MEDS ORDERED: MULTI VITAMINS1 TAB PO (08:46)
[2024-05-14] MEDS ORDERED: ONE DAILY ESSE0.5 M1 PO (08:47)
[2024-05-14] MEDS ORDERED: fentaNYL 50 MCG/ML 2 ML VIAL ONE ×2 (09:40→10:25)
[2024-05-14] MEDS ORDERED: NS 10 ML IV ONE (09:40)
[2024-05-14] MEDS ORDERED: Ondansetron 4 MG/2 ML VIAL ONE (09:40)
[2024-05-14] MEDS ORDERED: dexAMETHasone 10 MG/ML VIAL ONE (09:40)
[2024-05-14] MEDS ORDERED: Rocuronium 50 MG/5 ML Multi-Dose VIAL ONE (09:40)
[2024-05-14] MEDS ORDERED: hydrALAZINE 20 MG/ML 1 ML VIAL IV PRN (10:15)
[2024-05-14] MEDS ORDERED: HYDROmorphone 1 MG/1 ML SYRINGE [PACU/SDC ONLY] IV PRN ×2 (10:15)
[2024-05-14] MEDS ORDERED: Meperidine 50 MG/ML 1 ML VIAL IV PRN (10:15)
[2024-05-14] MEDS ORDERED: Ondansetron 4 MG/2 ML VIAL IV PRN ×2 (10:15→11:00)
[2024-05-14] MEDS ORDERED: droPERidol 2.5 MG/ML 2 ML VIAL IV PRN (10:15)
[2024-05-14] MEDS ORDERED: fentaNYL 50 MCG/ML 1 ML SYRINGE/VIAL [PACU/SDC ONLY] IV PRN (10:15)
[2024-05-14] MEDS ORDERED: Topical Skin Adhesive 1 EACH (1 ML) TOP ONE (10:52)
[2024-05-14] MEDS ORDERED: traMADol 50 MG TAB PO PRN (11:00)
[2024-05-14 12:05] VITALS: BP 144/71; PULSE 62; TEMP 98.4
--- NOTE | 2024-05-14 12:05 | NUR ---
PATIENT RETURNED TO ROOM 6 VIA CART, ALERT AND ORIENTED X3. RATES PAIN TOLERABLE 3/10 TO ABDOMEN, DESCRIBED ACHING PRESSURE. DENIES INTERVENTIONS FOR PAIN. DENIES NAUSEA AND SHORTNESS OF BREATH. BREATHING REGULAR AND UNLABORED ON ROOM AIR. SKIN WARM AND DRY. NURSE HANDOFF COMPLETED IN ROOM WITH INSPECTION OF SURGICAL SITES. 4 ABDOMINAL INCISIONS CLEAN AND DRY WITH BANDAID DRESSINGS INTACT ON EACH SITE. SURROUNDING SKIN INTACT WITH NO REDNESS. PATIENT REPORTED SHE HAD NAUSEA EARLIER THAT WAS RESOLVED NOW. PATIENT HAD WATER AND STRAWBERRY JELLO. NO DYSPHAGIA. CALL LIGHT IN REACH. SPOUSE PRESENT IN ROOM.
[2024-05-14 12:15] VITALS: BP 152/71; PULSE 57
[2024-05-14 12:27] VITALS: TEMP 97.1
[2024-05-14 12:30] VITALS: BP 159/71; PULSE 59
[2024-05-14 12:53] VITALS: BP 129/85; PULSE 71
--- NOTE | 2024-05-14 13:00 | NUR ---
1240: PATIENT AMBULATING IN HALLWAY WITH STEADY GAIT. BELCHING AND REPORTING RELIEF IN ABDOMINAL PRESSURE. 1245: PATIENT AMBULATED TO RESTROOM AND VOIDED WITHOUT DIFFICULTY. 1252: DISCHARGE TEACHING COMPLETED WITH PRINTED EDUCATION AND INSTRUCTIONS SENT HOME WITH PATIENT AND SPOUSE. FOLLOW UP APPOINTMENT DATE, TIME AND LOCATION COMMUNICATED TO PATIENT AND SPOUSE. PATIENT VERBALIZED UNDERSTANDING. 1255: PATIENT DENIES NAUSEA AND SHORTNESS OF BREATH. DENIES PAIN INTERVENTIONS REPORTING TOLERABLE PAIN (2/10) TO ABDOMEN. ALL 4 ABDOMINAL BANDAIDS CLEAN, DRY AND INTACT. IV REMOVED. GAUZE AND COBAN PLACED OVER SITE. 1300: DISCHARGED PATIENT HOME WITH SPOUSE, [place], TRANSPORT.
== END 2024-05-14 13:00 | disposition home or self-care (01) ==
LOC: SDCO 07:15
PROVIDERS: Surgery
DX: K80.10 Calculus of gallbladder with chronic cholecystitis without obstruction (principal); K28.9 Gastrojejunal ulcer, unspecified as acute or chronic, without hemorrhage or perforation; G47.30 Sleep apnea, unspecified; Z79.899 Other long term (current) drug therapy; Z98.84 Bariatric surgery status; Z95.5 Presence of coronary angioplasty implant and graft; Z79.82 Long term (current) use of aspirin
CPT/HCPCS: J0665; J0690; J1100; J1170; J2405; J2704; J3010; J7120